=== PATIENT | female | born 1990 | race African-American/Black ===

== ENCOUNTER 2018-04-19 19:25 | Emergency (ER) | payer MEDICARE, MEDICAID ==
[~2018-04-19] VITALS: Ht 172.7 cm; Wt 59.0 kg
[2018-04-19] MEDS ORDERED: NITROGLYCERIN 0.4MG TABLET SL SL PRN (21:15)
[2018-04-19] MEDS ORDERED: ASPIRIN 81MG TABLET PO ONE (21:15)
[2018-04-19 21:49] LABS: CHLORIDE 100 mEq/L (98-107)
[2018-04-19 21:59] LABS: HCG SCREEN NEGATIVE
[2018-04-19 22:00] LABS: BASOPHILS % 0.3 % (0.0-2.0); HEMATOCRIT. 33.7 % (36.0-48.0); HEMOGLOBIN. 10.8 g/dL (12.0-16.0); LYMPHOCYTES % 15.2 % (20.0-50.0); MEAN PLATELET VOLUME 8.5 fl (7.4-10.4); MONOCYTES % 8.3 % (2.0-8.0); NEUTROPHILS % 74.2 % (40.0-76.0); PLATELET 141 x1000/uL (130-400); RED BLOOD CELL COUNT 3.37 mill/uL (4.2-5.4); RED CELL DISTRIBUTION WIDTH 19.9 % (11.6-14.6)
[2018-04-19 22:11] LABS: INR 1.1; PROTHROMBIN TIME 10.9 sec (9.1-11.1)
[2018-04-19] MEDS ORDERED: HYDRALAZINE 20MG/ML VIAL IV ONE (22:45)
[2018-04-19] MEDS ORDERED: MORPHINE SULFATE 4 MG/ML CPJ (NOT FOR IM USE) IV ONE (22:45)
[2018-04-20] MEDS ORDERED: DIPHENHYDRAMINE 25MG CAPSULE PO ONE (01:00)
[2018-04-20] MEDS ORDERED: ONDANSETRON HCL 4MG/2ML INJ IV ONE (01:15)
[2018-04-20 04:19] VITALS: BP 152/96
== END 2018-04-20 04:29 | disposition home or self-care (01) ==
LOC: ER 19:25
DX: R07.9 Chest pain, unspecified (principal); I16.0 Hypertensive urgency; I12.0 Hypertensive chronic kidney disease with stage 5 chronic kidney disease or end stage renal disease; N18.6 End stage renal disease; M32.9 Systemic lupus erythematosus, unspecified; I73.00 Raynaud's syndrome without gangrene; Z88.2 Allergy status to sulfonamides; Z99.2 Dependence on renal dialysis
CPT/HCPCS: 36415; 71045; 80053; 84484; 84703; 85025; 85610; 93005; 96374; 96375; 99284; J0360; J2270; J2405; Q0163

== ENCOUNTER 2018-04-28 06:24 | Inpatient (IN) | payer MEDICARE, MEDICAID ==
[~2018-04-28] VITALS: Ht 167.6 cm; Wt 61.2 kg
[2018-04-28 07:41] LABS: BASOPHILS % 0.3 % (0.0-2.0); EOSINOPHILS % 0.3 % (0.0-5.0); HEMATOCRIT. 40.2 % (36.0-48.0); HEMOGLOBIN. 13.1 g/dL (12.0-16.0); LYMPHOCYTES % 7.6 % (20.0-50.0); MEAN PLATELET VOLUME 9.4 fl (7.4-10.4); MONOCYTES % 4.8 % (2.0-8.0); PLATELET 139 x1000/uL (130-400); RED CELL DISTRIBUTION WIDTH 19.8 % (11.6-14.6)
[2018-04-28 07:48] LABS: CHLORIDE 98 mEq/L (98-107)
[2018-04-28] MEDS ORDERED: MORPHINE SULFATE 4 MG/ML CPJ (NOT FOR IM USE) IV ONE (09:15)
[2018-04-28] MEDS ORDERED: IOHEXOL-350 100 ML BOTTLE ONE (12:39)
[2018-04-28] MEDS ORDERED: HYDROCODONE/ACETAMINOPHEN 10/325MG TABLET PO PRN (19:45)
[2018-04-28] MEDS ORDERED: HYDRALAZINE 20MG/ML VIAL IV NR (19:45)
[2018-04-28] MEDS: MORPHINE SULFATE 4 MG/ML CPJ (NOT FOR IM USE) IV PRN ×2 (19:59→22:09)
[2018-04-28] MEDS: ONDANSETRON HCL 4MG/2ML INJ IV PRN (22:27)
[2018-04-28] MEDS ORDERED: HYDRALAZINE 20MG/ML VIAL IV PRN (22:30)
[2018-04-28] MEDS ORDERED: HYDROCODONE/APAP 7.5/325MG 1 TAB TABLET PO PRN (22:30)
[2018-04-28] MEDS ORDERED: LORAZEPAM 0.5MG TABLET PO PRN (22:30)
[2018-04-28] MEDS ORDERED: ONDANSETRON HCL 4MG/2ML INJ IV PRN (22:30)
[2018-04-28] MEDS ORDERED: CLONIDINE 0.1MG TABLET PO PRN (22:30)
[2018-04-28] MEDS: METOPROLOL TARTRATE 50MG TABLET PO SCH (22:44)
[2018-04-28] MEDS ORDERED: NITROGLYCERIN 50MG PREMIX 250 ML IV PRN (23:45)
[2018-04-29] VITALS (61 sets, daily range): BP systolic 77–200; BP diastolic 29–123
[2018-04-29] MEDS: MORPHINE SULFATE 4 MG/ML CPJ (NOT FOR IM USE) IV PRN ×2 (02:05→16:52)
[2018-04-29] MEDS ORDERED: NITROPRUSSIDE 50 MG in SODIUM CHLORIDE 0.9% 248 ML IV PRN (04:30)
[2018-04-29] MEDS: NITROPRUSSIDE 50 MG in SODIUM CHLORIDE 0.9% 248 ML IV PRN ×3 (05:14→16:15)
[2018-04-29 06:16] LABS: *AMPHETAMINES SCREEN URINE NEGATIVE (NEGATIVE); *BARBITURATES SCREEN URINE NEGATIVE (NEGATIVE); *BENZODIAZEPINES SCREEN URINE NEGATIVE (NEGATIVE); METHADONE URINE SCREEN NEGATIVE (NEGATIVE); PHENCYCLIDINE URINE SCREEN NEGATIVE (NEGATIVE)
[2018-04-29 06:17] LABS: *COCAINE SCREEN URINE NEGATIVE (NEGATIVE)
[2018-04-29 06:25] LABS: CANNABINOID URINE SCREEN PRESUMTIVE POSITIVE (NEGATIVE); OPIATES URINE SCREEN PRESUMTIVE POSITIVE (NEGATIVE)
[2018-04-29] MEDS: DIPHENHYDRAMINE 50MG/ML VIAL IV PRN (08:38)
[2018-04-29] MEDS: ONDANSETRON HCL 4MG/2ML INJ IV PRN (10:17)
[2018-04-29] MEDS: HYDRALAZINE HCL 50MG TABLET PO SCH ×3 (10:56→21:14)
[2018-04-29] MEDS: CLONIDINE 0.1MG TABLET PO SCH ×3 (10:56→21:14)
[2018-04-29] MEDS: ENOXAPARIN 30MG/0.3ML SYR SUBCUT SCH (10:57)
[2018-04-29] MEDS: METOPROLOL TARTRATE 50MG TABLET PO SCH ×2 (12:24→21:14)
[2018-04-29] MEDS: LISINOPRIL 10MG TABLET PO SCH (12:29)
[2018-04-29 13:50] LABS: HEMATOCRIT. 38.1 % (36.0-48.0); HEMOGLOBIN. 12.4 g/dL (12.0-16.0); MEAN CORPUSCULAR HEMOGLOBIN 31.7 pg (28.0-32.0); MEAN CORPUSCULAR VOLUME 97.6 fL (81.0-99.0); MEAN PLATELET VOLUME 9.3 fl (7.4-10.4); PLATELET 198 x1000/uL (130-400); RED BLOOD CELL COUNT 3.91 mill/uL (4.2-5.4); RED CELL DISTRIBUTION WIDTH 19.9 % (11.6-14.6)
[2018-04-29 14:07] LABS: CREATINE KINASE MB FRACTION 3.3 ng/mL (0.5-3.6)
[2018-04-29 16:24] LABS: PLATELET ESTIMATE NORMAL
[2018-04-30] VITALS (31 sets, daily range): BP systolic 74–149; BP diastolic 35–77
[2018-04-30 06:12] LABS: HEMATOCRIT. 36.9 % (36.0-48.0); HEMOGLOBIN. 12.2 g/dL (12.0-16.0); MEAN CORPUSCULAR HEMOGLOBIN 31.7 pg (28.0-32.0); MEAN CORPUSCULAR VOLUME 96.1 fL (81.0-99.0); PLATELET 167 x1000/uL (130-400); RED BLOOD CELL COUNT 3.84 mill/uL (4.2-5.4); RED CELL DISTRIBUTION WIDTH 20.4 % (11.6-14.6)
[2018-04-30] MEDS: CLONIDINE 0.1MG TABLET PO SCH ×3 (06:35→21:16)
[2018-04-30] MEDS: HYDRALAZINE HCL 50MG TABLET PO SCH ×3 (06:36→21:17)
[2018-04-30] MEDS: MORPHINE SULFATE 4 MG/ML CPJ (NOT FOR IM USE) IV PRN ×2 (06:36→23:57)
[2018-04-30] MEDS: ENOXAPARIN 30MG/0.3ML SYR SUBCUT SCH ×2 (08:43→09:01)
[2018-04-30] MEDS: LISINOPRIL 10MG TABLET PO SCH (08:43)
[2018-04-30] MEDS: METOPROLOL TARTRATE 50MG TABLET PO SCH ×2 (08:44→21:24)
[2018-04-30] MEDS: DIPHENHYDRAMINE 50MG/ML VIAL IV PRN (11:39)
[2018-04-30 13:56] LABS: PLATELET ESTIMATE NORMAL
[2018-04-30] MEDS: ONDANSETRON HCL 4MG/2ML INJ IV PRN (21:53)
[2018-05-01] VITALS: BP 130/70
[2018-05-01 04:00] VITALS: BP 118/80
[2018-05-01] MEDS: HYDRALAZINE HCL 50MG TABLET PO SCH ×3 (05:47→14:07)
[2018-05-01] MEDS: CLONIDINE 0.1MG TABLET PO SCH ×3 (05:47→14:06)
[2018-05-01] MEDS ORDERED: METO-539 PO (07:19)
[2018-05-01] MEDS ORDERED: [UNRECOGNIZED DRUG - OTHER] IV (07:19)
[2018-05-01] MEDS ORDERED: HYDR-4009 PO (07:19)
[2018-05-01] MEDS ORDERED: CLON0.1T14 PO (07:19)
[2018-05-01 08:00] VITALS: BP 116/68
[2018-05-01] MEDS: ENOXAPARIN 30MG/0.3ML SYR SUBCUT SCH (09:00)
[2018-05-01] MEDS ORDERED: LISINOPRIL 20MG TABLET PO SCH (09:00)
[2018-05-01] MEDS: METOPROLOL TARTRATE 50MG TABLET PO SCH (09:05)
[2018-05-01] MEDS: MORPHINE SULFATE 4 MG/ML CPJ (NOT FOR IM USE) IV PRN (10:59)
[2018-05-01 12:05] VITALS: BP 110/51
[2018-05-01 16:17] VITALS: BP 103/57
== END 2018-05-01 18:58 | disposition home or self-care (01) | DRG 304 ==
LOC: ER 06:24 → MICUNO 10:54 → EDBEDREQTM 10:56 → EDBEDREQ 10:56 → ENRESERV 19:34 → CANRESERV 19:34 → SUPCPDRO 22:16 → EDBEDREQSVC 04-29 01:53 → ENRESERV 04-29 06:53 → 8WST 04-30 22:30
PROVIDERS: ADMIT Internal Medicine Nephrology; ATTEND Internal Medicine Nephrology
PROC: 5A1D70Z Performance of Urinary Filtration, Intermittent, Less than 6 Hours Per Day (ICD-10-PCS; principal; 2018-04-30)
DX: I16.0 Hypertensive urgency (principal); N18.6 End stage renal disease; I12.0 Hypertensive chronic kidney disease with stage 5 chronic kidney disease or end stage renal disease; Z99.2 Dependence on renal dialysis; D64.9 Anemia, unspecified; R07.89 Other chest pain
CPT/HCPCS: 36415; 71250; 71275; 80048; 80305; 82550; 82553; 83880; 84484; 93005; 93306; 93970; 96365; 96366; 96375; 99285; J0360; J1200; J1650; J2270; J2405; J3490; J7050; Q9967

== ENCOUNTER 2019-12-15 19:30 | Inpatient (IN) | payer MEDICARE, MEDICAID ==
[~2019-12-15] VITALS: Ht 165.1 cm; Wt 58.5 kg
[~2019-12-15 19:30] MED LIST: APIX2.5T MT; APIX2.5T PO; CARV6.2548 MT; CINA30 MT; CLON0.1T PO; HYDR200T35 MT; ISOS20TA57 PO; NIFE20CA PO; PANT40TA4 MT; REV20 MT; VALA500T55 MT
[2019-12-15] MEDS ORDERED: ONDANSETRON HCL 4MG/2ML INJ IV STA (19:47)
[2019-12-15] MEDS ORDERED: ASPIRIN 81MG TABLET PO ONE (20:00)
[2019-12-15] MEDS ORDERED: SODIUM CHLORIDE 0.9% 1000ML BAG (SEPSIS BOLUS) IV ONE (20:00)
[2019-12-15] MEDS ORDERED: CEFEPIME 1,000 MG in DEXTROSE 5% WATER 50 ML IV ONE (20:00)
[2019-12-15] MEDS ORDERED: NITROGLYCERIN 0.4MG TABLET SL SL ONE (20:00)
[2019-12-15] MEDS ORDERED: NITROGLYCERIN 50MG PREMIX 250 ML IV ONE (21:45)
[2019-12-15 21:51] LABS: CHLORIDE 99 mEq/L (98-107)
[2019-12-15 21:53] LABS: HEMATOCRIT. 30.8 % (36.0-48.0); HEMOGLOBIN. 9.7 g/dL (12.0-16.0); INR 1.2; MEAN CORPUSCULAR HEMOGLOBIN 26.5 pg (28.0-32.0); MEAN CORPUSCULAR VOLUME 84.4 fL (81.0-99.0); MEAN PLATELET VOLUME 10.9 fl (7.4-10.4); PLATELET 147 x1000/uL (130-400); PROTHROMBIN TIME 12.6 sec (9.6-11.0); RED BLOOD CELL COUNT 3.65 mill/uL (4.2-5.4); RED CELL DISTRIBUTION WIDTH 22.5 % (11.6-14.6)
[2019-12-15 22:11] LABS: PLATELET ESTIMATE NORMAL
[2019-12-15] MEDS ORDERED: DEXTROSE 50% WATER 50ML SYRINGE IV ONE (22:45)
[2019-12-15] MEDS ORDERED: CALCIUM CHLORIDE 1GM/10ML SYR IV ONE (22:45)
[2019-12-15] MEDS ORDERED: SODIUM BICARBONATE 8.4% 1 MEQ/ML 50ML SYR IV ONE (22:45)
[2019-12-15] MEDS ORDERED: INSULIN REGULAR (HUMULIN R) 300UNITS/3ML IV ONE (22:45)
[2019-12-16] VITALS (62 sets, daily range): BP systolic 97–189; BP diastolic 43–131
[2019-12-16] MEDS ORDERED: ONDANSETRON HCL 4MG/2ML INJ IV PRN (06:30)
[2019-12-16] MEDS ORDERED: GUAIFENESIN 200MG/10ML SUGAR FREE UDC PO PRN (06:30)
[2019-12-16] MEDS ORDERED: MAGNESIUM/ALUMINUM HYDROXIDE/SIMETHICONE 30ML UDC PO PRN (06:30)
[2019-12-16] MEDS: DIPHENHYDRAMINE 50MG/ML VIAL IV PRN ×2 (09:08→18:26)
[2019-12-16] MEDS: KETOROLAC 15MG/ML VIAL IV PRN ×2 (10:39→18:00)
[2019-12-16] MEDS ORDERED: AZITHROMYCIN 500 MG TABLET PO NR (11:15)
[2019-12-16] MEDS ORDERED: CEFTRIAXONE 1 G PREMIX 50 ML IV SCH (11:15)
[2019-12-16] MEDS: CEFTRIAXONE 1,000 MG in DEXTROSE 5% WATER 50 ML IV SCH ×2 (13:02→17:06)
[2019-12-16] MEDS: AMLODIPINE 10MG TABLET PO SCH (13:02)
[2019-12-16 13:12] LABS: BG BASE EXCESS -8.5 mmol/L (-2.0-2.0); BG CARBOXYHEMOGLOBIN 0.1 % (0.5-1.5); BG DEOXYHEMOGLOBIN 16.7 % (0.0-5.0); BG HCO3 ACT 19.3 mmol/L (22.0-26.0); BG METHEMOGLOBIN 0.3 % (0.0-1.5); BG OXYGEN SATURATION 83.2 % (92.0-98.5); BG OXYHEMOGLOBIN 82.9 % (94.0-97.0); BG PH 7.205 (7.350-7.450); BG PO2 54.3 mmHg (75.0-100.0); BG SAMPLE SITE RIGHT RADIAL; BG TOTAL HEMOGLOBIN 10.7 g/dL (12.0-18.0); BG VENT MODE NASAL CANNULA
[2019-12-16] MEDS: HYDRALAZINE HCL 100MG TABLET PO SCH ×2 (15:26→23:51)
[2019-12-16] MEDS: ACETAMINOPHEN 325MG TABLET PO PRN (19:48)
[2019-12-17] VITALS (40 sets, daily range): BP systolic 77–145; BP diastolic 24–92
[2019-12-17] MEDS: KETOROLAC 15MG/ML VIAL IV PRN ×2 (01:16→09:17)
[2019-12-17 05:41] LABS: BASOPHILS % 0.3 % (0.0-2.0); EOSINOPHILS % 2.4 % (0.0-5.0); HEMATOCRIT. 31.3 % (36.0-48.0); LYMPHOCYTES % 11.9 % (20.0-50.0); MEAN CORPUSCULAR VOLUME 84.7 fL (81.0-99.0); MEAN PLATELET VOLUME 10.8 fl (7.4-10.4); MONOCYTES % 5.9 % (2.0-8.0); NEUTROPHILS % 79.5 % (40.0-76.0); PLATELET 153 x1000/uL (130-400); RED CELL DISTRIBUTION WIDTH 22.3 % (11.6-14.6)
[2019-12-17 05:45] LABS: CHLORIDE 100 mEq/L (98-107)
[2019-12-17] MEDS: HYDRALAZINE HCL 100MG TABLET PO SCH ×3 (05:45→21:37)
[2019-12-17] MEDS: DIPHENHYDRAMINE 50MG/ML VIAL IV PRN ×2 (06:16→12:13)
[2019-12-17] MEDS: AMLODIPINE 10MG TABLET PO SCH (09:00)
[2019-12-17] MEDS: AZITHROMYCIN 250 MG TABLET PO SCH (09:00)
[2019-12-17] MEDS: HYDROMORPHONE HCL/PF 2MG/ML CPJ IV PRN (11:41)
[2019-12-17] MEDS: CEFTRIAXONE 1,000 MG in DEXTROSE 5% WATER 50 ML IV SCH (13:11)
[2019-12-17] MEDS: CALAMINE LOTION 120ML TOP SCH ×2 (14:43→21:48)
[2019-12-17] MEDS: PANTOPRAZOLE SODIUM 40 MG/VIAL IV SCH (15:36)
[2019-12-18] VITALS (8 sets, daily range): BP systolic 103–162; BP diastolic 52–111
[2019-12-18] MEDS: CLONIDINE 0.1MG TABLET PO PRN ×2 (06:05→20:44)
[2019-12-18] MEDS: ACETAMINOPHEN 325MG TABLET PO PRN (06:05)
[2019-12-18] MEDS: HYDRALAZINE HCL 100MG TABLET PO SCH ×3 (06:05→21:01)
[2019-12-18] MEDS: CALAMINE LOTION 120ML TOP SCH ×2 (06:07→14:34)
[2019-12-18] MEDS: AMLODIPINE 10MG TABLET PO SCH (08:43)
[2019-12-18] MEDS: KETOROLAC 15MG/ML VIAL IV PRN (08:47)
[2019-12-18] MEDS: PANTOPRAZOLE SODIUM 40 MG/VIAL IV SCH (08:47)
[2019-12-18] MEDS: AZITHROMYCIN 250 MG TABLET PO SCH (08:47)
[2019-12-18] MEDS: HYDROMORPHONE HCL/PF 2MG/ML CPJ IV PRN (11:20)
[2019-12-18] MEDS: CEFTRIAXONE 1,000 MG in DEXTROSE 5% WATER 50 ML IV SCH (14:34)
[2019-12-21 04:10] LABS: BARBITURATE SCREEN Negative ug/mL (Cutoff:0.1); BENZODIAZEPINE SCREEN Negative ng/mL (Cutoff:20); OPIATES SCREEN Negative ng/mL (Cutoff:5); PHENCYCLIDINE SCREEN Negative ng/mL (Cutoff:8)
== END 2019-12-18 22:35 | disposition home or self-care (01) | DRG 291 ==
LOC: ER 19:57 → MICUSO 23:07 → EDBEDREQ 23:13 → EDBEDREQSVC 23:13 → EDBEDREQTM 23:13 → MICUNO 12-16 01:21 → MICUSO 12-16 05:45 → 6WST 12-17 20:05
PROVIDERS: ADMIT Hospitalist; ATTEND Hospitalist
PROC: 5A09357 Assistance with Respiratory Ventilation, Less than 24 Consecutive Hours, Continuous Positive Airway Pressure (ICD-10-PCS; 2019-12-15)
PROC: 5A1D70Z Performance of Urinary Filtration, Intermittent, Less than 6 Hours Per Day (ICD-10-PCS; 2019-12-15)
PROC: 02H633Z Insertion of Infusion Device into Right Atrium, Percutaneous Approach (ICD-10-PCS; principal; 2019-12-16)
PROC: B548ZZA Ultrasonography of Superior Vena Cava, Guidance (ICD-10-PCS; 2019-12-16)
PROC: 5A09357 Assistance with Respiratory Ventilation, Less than 24 Consecutive Hours, Continuous Positive Airway Pressure (ICD-10-PCS; 2019-12-16)
PROC: 5A09357 Assistance with Respiratory Ventilation, Less than 24 Consecutive Hours, Continuous Positive Airway Pressure (ICD-10-PCS; 2019-12-17)
PROC: 5A09357 Assistance with Respiratory Ventilation, Less than 24 Consecutive Hours, Continuous Positive Airway Pressure (ICD-10-PCS; 2019-12-18)
PROC: 5A1D70Z Performance of Urinary Filtration, Intermittent, Less than 6 Hours Per Day (ICD-10-PCS; 2019-12-18)
DX: I13.2 Hypertensive heart and chronic kidney disease with heart failure and with stage 5 chronic kidney disease, or end stage renal disease (principal); I50.33 Acute on chronic diastolic (congestive) heart failure; J96.01 Acute respiratory failure with hypoxia; J18.9 Pneumonia, unspecified organism; N18.6 End stage renal disease; N17.9 Acute kidney failure, unspecified; E44.1 Mild protein-calorie malnutrition; M32.9 Systemic lupus erythematosus, unspecified; E87.5 Hyperkalemia; D64.9 Anemia, unspecified; I99.9 Unspecified disorder of circulatory system; I73.00 Raynaud's syndrome without gangrene; L50.9 Urticaria, unspecified; Z20.828 Contact with and (suspected) exposure to other viral communicable diseases; Z99.2 Dependence on renal dialysis; Z88.2 Allergy status to sulfonamides; Z09 Encounter for follow-up examination after completed treatment for conditions other than malignant neoplasm; Z79.899 Other long term (current) drug therapy
CPT/HCPCS: 36415; 36600; 71045; 76700; 76937; 80053; 80307; 82375; 82728; 82805; 82962; 83605; 84145; 84484; 85025; 87635; 93005; 93970; 94660; 99291; C1725; C9113; J0692; J0696; J1170; J1200; J1815; J1885; J2405; J3490; J7030; J7060

== ENCOUNTER 2020-05-03 23:18 | Inpatient (IN) | payer MEDICARE, MEDICAID ==
[~2020-05-03] VITALS: Ht 167.6 cm; Wt 53.1 kg
[~2020-05-03 23:18] MED LIST changes: -APIX2.5T MT; -PANT40TA4 MT; +PANT40TA51 MT
[2020-05-03] MEDS ORDERED: ONDANSETRON HCL 4MG/2ML INJ IV STA (23:59)
[2020-05-04] MEDS ORDERED: NITROGLYCERIN OINT 1GM/INCH UDPKT TD ONE
[2020-05-04] MEDS ORDERED: LABETALOL HCL 20MG/4ML CARPUJECT IV ONE
[2020-05-04 00:48] LABS: BASOPHILS % 0.5 % (0.0-2.0); EOSINOPHILS % 0.7 % (0.0-5.0); HEMATOCRIT. 32.4 % (36.0-48.0); HEMOGLOBIN. 10.2 g/dL (12.0-16.0); LYMPHOCYTES % 13.9 % (20.0-50.0); MEAN PLATELET VOLUME 10.3 fl (7.4-10.4); MONOCYTES % 5.2 % (2.0-8.0); NEUTROPHILS % 79.7 % (40.0-76.0); PLATELET 223 x1000/uL (130-400); RED BLOOD CELL COUNT 3.52 mill/uL (4.2-5.4); RED CELL DISTRIBUTION WIDTH 21.4 % (11.6-14.6)
[2020-05-04] MEDS ORDERED: CLONIDINE 0.3MG TABLET PO ONE (01:00)
[2020-05-04] MEDS ORDERED: LORAZEPAM 2MG/ML CPJ IM ONE (01:00)
[2020-05-04 01:02] LABS: HCG SCREEN NEGATIVE
[2020-05-04 01:06] LABS: CHLORIDE 98 mEq/L (98-107)
[2020-05-04] MEDS ORDERED: NICARDIPINE 100 MG in SODIUM CHLORIDE 0.9% 60 ML IV ONE (02:15)
[2020-05-04] MEDS: DIPHENHYDRAMINE 50MG CAPSULE PO PRN ×3 (05:05→23:30)
[2020-05-04] MEDS ORDERED: ACETAMINOPHEN 325MG TABLET PO PRN (08:30)
[2020-05-04] MEDS ORDERED: ONDANSETRON HCL 4MG/2ML INJ IV PRN (08:30)
[2020-05-04] MEDS: HYDROCODONE/ACETAMINOPHEN 5/325MG TABLET PO PRN ×3 (08:40→23:36)
[2020-05-04] MEDS: ENOXAPARIN 30MG/0.3ML SYR SUBCUT SCH (09:47)
[2020-05-04] MEDS ORDERED: LEVOFLOXACIN 500MG PREMIX 100 ML IV SCH (11:00)
[2020-05-05] MEDS: HYDROCODONE/ACETAMINOPHEN 5/325MG TABLET PO PRN (01:16)
[2020-05-05] MEDS: CLONIDINE 0.1MG TABLET PO PRN ×2 (01:16→18:58)
[2020-05-05 04:54] LABS: BASOPHILS % 0.1 % (0.0-2.0); EOSINOPHILS % 1.3 % (0.0-5.0); HEMATOCRIT. 27.4 % (36.0-48.0); HEMOGLOBIN. 8.6 g/dL (12.0-16.0); LYMPHOCYTES % 20.8 % (20.0-50.0); MEAN CORPUSCULAR VOLUME 92.6 fL (81.0-99.0); MEAN PLATELET VOLUME 9.2 fl (7.4-10.4); MONOCYTES % 7.8 % (2.0-8.0); PLATELET 139 x1000/uL (130-400); RED BLOOD CELL COUNT 2.95 mill/uL (4.2-5.4); RED CELL DISTRIBUTION WIDTH 21.5 % (11.6-14.6)
[2020-05-05 07:59] VITALS: BP 158/107
[2020-05-05 08:30] VITALS: BP 152/111
[2020-05-05] MEDS: DIPHENHYDRAMINE 50MG CAPSULE PO PRN ×2 (08:32→22:33)
[2020-05-05] MEDS: ENOXAPARIN 30MG/0.3ML SYR SUBCUT SCH (08:36)
[2020-05-05] MEDS ORDERED: SODIUM BICARBONATE 8.4% 1 MEQ/ML 50ML SYR IV NR (10:08)
[2020-05-05] MEDS ORDERED: DIPHENHYDRAMINE 50MG/ML VIAL IV NR (10:30)
[2020-05-05] MEDS: LACTULOSE 20G/30ML UDC PO NR ×3 (10:45→11:35)
[2020-05-05] MEDS ORDERED: INSULIN REGULAR (HUMULIN R) UD 100 UNITS/ML SYR IV NR (11:00)
[2020-05-05] MEDS ORDERED: DEXTROSE 50% WATER 50ML SYRINGE IV NR (11:00)
[2020-05-05 11:41] VITALS: BP 152/111
[2020-05-05 15:17] VITALS: BP 164/119
[2020-05-05] MEDS ORDERED: LEVO250T58 MT (17:38)
[2020-05-05 20:00] VITALS: BP 154/115
[2020-05-06] VITALS: BP 147/104
[2020-05-06 04:00] VITALS: BP 154/115
[2020-05-06 07:12] LABS: BASOPHILS % 0.4 % (0.0-2.0); EOSINOPHILS % 1.5 % (0.0-5.0); HEMATOCRIT. 33.1 % (36.0-48.0); HEMOGLOBIN. 10.8 g/dL (12.0-16.0); LYMPHOCYTES % 24.8 % (20.0-50.0); MEAN CORPUSCULAR HEMOGLOBIN 29.5 pg (28.0-32.0); MEAN CORPUSCULAR VOLUME 90.8 fL (81.0-99.0); MEAN PLATELET VOLUME 9.5 fl (7.4-10.4); MONOCYTES % 7.7 % (2.0-8.0); NEUTROPHILS % 65.6 % (40.0-76.0); PLATELET 193 x1000/uL (130-400); RED BLOOD CELL COUNT 3.65 mill/uL (4.2-5.4); RED CELL DISTRIBUTION WIDTH 21.8 % (11.6-14.6)
[2020-05-06 08:00] VITALS: BP 154/106
[2020-05-06] MEDS ORDERED: ALBUTEROL (0.083%) 2.5MG/3ML NEB HHN SCH (08:15)
[2020-05-06] MEDS: ENOXAPARIN 30MG/0.3ML SYR SUBCUT SCH (09:40)
[2020-05-06] MEDS ORDERED: LEVOFLOXACIN 250MG PREMIX 50 ML IV SCH ×2 (11:00)
[2020-05-06] MEDS: CLONIDINE 0.1MG TABLET PO PRN (11:19)
[2020-05-06 12:12] VITALS: BP 184/134
[2020-05-06] MEDS ORDERED: CLONIDINE 0.1MG TABLET PO SCH (12:30)
[2020-05-06 12:45] VITALS: BP 160/88
== END 2020-05-06 14:31 | disposition home or self-care (01) | DRG 682 ==
LOC: ER 23:18 → MICUSO 05-04 02:11 → EDBEDREQ 05-04 02:14 → EDBEDREQTM 05-04 02:14 → EDBEDREQSVC 05-04 10:07 → 6WST 05-05 05:02
PROVIDERS: ADMIT Internal Medicine; ATTEND Internal Medicine
PROC: 5A1D70Z Performance of Urinary Filtration, Intermittent, Less than 6 Hours Per Day (ICD-10-PCS; principal; 2020-05-04)
PROC: 5A1D70Z Performance of Urinary Filtration, Intermittent, Less than 6 Hours Per Day (ICD-10-PCS; 2020-05-05)
DX: I12.0 Hypertensive chronic kidney disease with stage 5 chronic kidney disease or end stage renal disease (principal); J96.01 Acute respiratory failure with hypoxia; E43 Unspecified severe protein-calorie malnutrition; N18.6 End stage renal disease; E87.1 Hypo-osmolality and hyponatremia; I16.1 Hypertensive emergency; Z68.1 Body mass index [BMI] 19.9 or less, adult; E87.5 Hyperkalemia; E11.22 Type 2 diabetes mellitus with diabetic chronic kidney disease; Z20.822 Contact with and (suspected) exposure to COVID-19; D64.9 Anemia, unspecified; I27.20 Pulmonary hypertension, unspecified; E87.70 Fluid overload, unspecified; Z88.0 Allergy status to penicillin; Z79.899 Other long term (current) drug therapy; Z99.2 Dependence on renal dialysis; E11.649 Type 2 diabetes mellitus with hypoglycemia without coma
CPT/HCPCS: 36415; 71045; 80048; 80053; 82962; 84145; 84484; 84703; 85025; 93005; 94640; 96365; 96372; 96375; 99285; C9803; J1200; J1650; J1815; J1956; J2060; J2405; J3490; J7040; J7050; Q0163; U0003